=== PATIENT | female | born 1955 | race Caucasian/White ===

== ENCOUNTER 2017-09-13 13:51 | Emergency (ER) | payer SELFPAY ==
[2017-09-13 14:00] VITALS: BP 157/67
[2017-09-13] MEDS ORDERED: ALBUTEROL SULFATE HFA (90 MCG/PUFF) 8 GM MDI (1 MDI/ER DISP) IH ONE (14:10)
[2017-09-13] MEDS ORDERED: PREDNISONE 20 MG TABLET PO ONE (14:10)
--- NOTE | 2017-09-13 14:17 | ER Document Report ---
HPI - HPI Patient complains to provider of: Eyes watering, eyelid swelling Onset: Other - 1 month Onset/Duration: Persistent Pain Level: 1 Context: Patient complains of bilateral eyelid swelling and tearing of the eyes for the past month. Patient does complain of itching to the eyes. Patient states she saw her primary doctor who placed her on oral azithromycin to treat this several weeks ago but denies any improvement of her symptoms. Associated Symptoms: Other - Eyelid swelling, eyes watering. denies: Fever Exacerbated by: Denies Relieved by: Denies Similar symptoms previously: Yes Recently seen / treated by doctor: Yes - ROS ROS below otherwise negative: Yes Systems Reviewed and Negative: Yes All other systems reviewed and negative - CONSTITUTIONAL Constitutional: DENIES: Fever, Chills - EENT EENT: REPORTS: Eye problems - NEURO Neurology: DENIES: Headache - RESPIRATORY Respiratory: DENIES: Coughing - REPRODUCTIVE Reproductive: DENIES: : - DERM Skin Color: Erythema Skin Problems: None Past Medical History - General Information source: Patient - Social History Smoking Status: Current Every Day Smoker Smoking Education Provided: Yes Frequency of alcohol use: None Drug Abuse: None Lives with: Family Family History: Reviewed & Not Pertinent - Past Medical History Cardiac Medical History: Reports: Hx Hypercholesterolemia, Hx Hypertension Endocrine Medical History: Reports: Hx Diabetes Mellitus Type 2 Past Surgical History: Reports: Hx Tubal Ligation - Immunizations Hx Diphtheria, Pertussis, Tetanus Vaccination: Yes Vertical Provider Document - CONSTITUTIONAL Agree With Documented VS: Yes Exam Limitations: No Limitations General Appearance: WD/WN, No Apparent Distress - INFECTION CONTROL TRAVEL OUTSIDE OF THE [place] IN LAST 30 DAYS: No - HEENT HEENT: Atraumatic, Normocephalic Notes: Bilateral conjunctivae erythematous with tearing. Extraocular movements intact , Perrl, bilateral lower eyelids erythematous and edematous - NECK Neck: Normal Inspection, Supple - RESPIRATORY Respiratory: No Respiratory Distress, Wheezing - CARDIOVASCULAR Cardiovascular: Regular Rate, Regular Rhythm, No Murmur - BACK Back: Normal Inspection - MUSCULOSKELETAL/EXTREMETIES Musculoskeletal/Extremeties: MAEW - NEURO Level of Consciousness: Awake, Alert, Appropriate Motor/Sensory: No Motor Deficit - DERM Integumentary: Warm, Dry, No Rash Course - Re-evaluation Re-evalutation: 09/13/17 Patient with symptoms consistent with allergic conjunctivitis. Patient does report symptoms coincided with the onset of increased pollen in the environment. Patient without any ptosis, no eyeball tenderness, no concern for preseptal or septal cellulitis - Vital Signs Vital signs: Temp Pulse Resp BP Pulse Ox 98.0 F 96 18 157/67 H 94 09/13/17 13:58 09/13/17 13:58 09/13/17 13:58 09/13/17 13:58 09/13/17 13:58 Discharge - Discharge Clinical Impression: Wheezing Allergic conjunctivitis Qualifiers: Laterality: bilateral Qualified Code(s): H10.13 - Acute atopic conjunctivitis, bilateral Condition: Stable Disposition: HOME, SELF-CARE Instructions: Conjunctivitis, Allergic, Eyedrop Use ([facility]), Inhaled Bronchodilators ([facility]), Steroid Medication Additional Instructions: Return immediately for any new or worsening symptoms Followup with your primary care provider, call tomorrow to make a followup appointment Take a daily antihistamine such as Claritin or Zyrtec to help with her symptoms Follow-up with an machine printer hose for further evaluation Stop smoking Prescriptions: Olopatadine HCl [Pataday] 1 drop OP DAILY #2.5 ml Prednisone [Deltasone 20 mg Tablet] 3 tab PO DAILY 4 Days tablet Forms: Smoking Cessation Education Referrals: [facility] [Provider Group] - Follow up as needed [facility] [Provider Group] - Follow up as needed
== END 2017-09-13 14:25 | disposition home or self-care (01) ==
LOC: ER 13:51
DX: H10.13 Acute atopic conjunctivitis, bilateral (principal); R06.2 Wheezing; F17.200 Nicotine dependence, unspecified, uncomplicated; I10 Essential (primary) hypertension; E11.9 Type 2 diabetes mellitus without complications
CPT/HCPCS: 99283; J7512; J3490